=== PATIENT | female | born 1960 | race Native Hawaiian/Other Pacific Islander ===

== ENCOUNTER 2018-08-23 15:03 | Outpatient (CLI) | payer BC | END 2018-08-23 23:24 | disposition home or self-care (01) | LOC: RAD 15:03 | DX: M25.511 Pain in right shoulder (principal) ==

== ENCOUNTER 2018-11-25 14:28 | Outpatient (CLI) | payer BC | END 2018-11-25 23:05 | disposition home or self-care (01) | LOC: MRI 14:28 | DX: M25.511 Pain in right shoulder (principal) ==

== ENCOUNTER 2019-10-20 11:59 | Outpatient (CLI) | payer BC | END 2019-10-20 19:19 | disposition home or self-care (01) | LOC: RAD 11:59 | DX: M54.6 Pain in thoracic spine (principal); M54.2 Cervicalgia ==

== ENCOUNTER 2020-04-19 12:25 | Outpatient (CLI) | payer BC | END 2020-04-19 23:03 | disposition home or self-care (01) | LOC: RAD 12:25 | DX: M54.5 Low back pain (principal) ==

== ENCOUNTER 2020-06-23 07:14 | Outpatient (CLI) | payer BC ==
[2020-06-23 09:16] LABS: POTASSIUM 3.9 mmol/L (3.6-5.2)
== END 2020-06-23 21:27 | disposition home or self-care (01) ==
LOC: LABW 07:14
DX: D53.9 Nutritional anemia, unspecified (principal); E55.9 Vitamin D deficiency, unspecified; E78.2 Mixed hyperlipidemia; I10 Essential (primary) hypertension; R73.01 Impaired fasting glucose
CPT/HCPCS: 80048; 82306; 83036; 84443

== ENCOUNTER 2022-07-07 11:36 | Outpatient (CLI) | payer BC | END 2022-07-07 18:59 | disposition home or self-care (01) | LOC: RAD 11:36 | PROVIDERS: ATTEND Physician Assistant | DX: M25.551 Pain in right hip (principal) ==

== ENCOUNTER 2022-12-14 08:27 | Outpatient (CLI) | payer BC | END 2022-12-14 17:00 | disposition home or self-care (01) | LOC: LABW 08:27 | PROVIDERS: ATTEND Family Medicine | DX: E87.5 Hyperkalemia (principal); R73.03 Prediabetes | CPT/HCPCS: 36415; 83036; 84132 ==